=== PATIENT | male | born 1995 | race Caucasian/White ===

== ENCOUNTER 2018-08-11 23:10 | Emergency (ER) | payer OTHER ==
[~2018-08-11] VITALS: Ht 182.9 cm; Wt 75.7 kg
[2018-08-11 23:12] VITALS: BP 124/81
== END 2018-08-11 23:45 | disposition home or self-care (01) ==
LOC: ED 23:39
DX: T16.1XXA Foreign body in right ear, initial encounter (principal); Z88.1 Allergy status to other antibiotic agents; Y93.89 Activity, other specified; Y99.8 Other external cause status; Y92.89 Other specified places as the place of occurrence of the external cause
CPT/HCPCS: 69200; 99284